=== PATIENT | female | born 1995 | race Caucasian/White ===

== ENCOUNTER 2017-02-07 13:16 | Emergency (ER) | payer MEDICAID ==
[2017-02-07 15:03] LABS: BASOPHILS 0.1 % (0-2); EOSINOPHILS 0.9 % (0-7); HEMATOCRIT 33.7 % (36.0-48.0); HEMOGLOBIN 11.2 g/dL (12-16); IMMATURE GRANULOCYTES 0.4 % (0-5); LYMPHOCYTES 21.5 % (15-50); MCH 29.9 pg (26.0-34.0); MCHC 33.2 g/dL (31.0-37.0); MCV 89.9 fL (80.0-100.0); MEAN PLATELET VOLUME 11.7 fL (7.4-10.4); MONOCYTES 6.2 % (2-11); NEUTROPHILS 70.9 % (40-80); PLATELET COUNT 171 10x3/uL (130-400); RBC 3.75 10x6/uL (4.00-5.40); RDW 13.4 % (11.5-14.5); WBC 11.1 10x3/uL (4.8-10.8)
[2017-02-07 15:11] LABS: APPEARANCE CLOUDY (CLEAR); BACTERIA MODERATE /hpf (NONE SEEN); BILIRUBIN NEGATIVE (NEGATIVE); COLOR YELLOW (YELLOW); GLUCOSE NEGATIVE (NEGATIVE); KETONE NEGATIVE (NEGATIVE); LEUKOCYTE ESTERASE TRACE (NEGATIVE); NITRITE NEGATIVE (NEGATIVE); PROTEIN NEGATIVE (NEGATIVE); RED CELLS - URINE OCC /hpf (0-5); UROBILINOGEN NORMAL (NORMAL); YEAST OCC /hpf (NONE SEEN)
[2017-02-07 15:15] LABS: CALC OSMOLALITY 271 mosm/kg (275-300); CALCIUM 8.8 mg/dL (8.5-10.1); CARBON DIOXIDE 27.2 mmol/L (21.0-32.0); CHLORIDE - SERUM 104 mmol/L (98-107); CREATININE - SERUM 0.5 mg/dL (0.6-1.3); GLUCOSE 102 mg/dL (74-106); POTASSIUM - SERUM 3.6 mmol/L (3.5-5.1); SODIUM 137 mmol/L (136-145); UREA NITROGEN 7 mg/dL (7-18); eGFR NON AFRICAN AMERICAN > 90 mL/min (90-120)
[2017-02-07 15:18] LABS: GRANULAR CAST 0-5 /lpf (NONE SEEN); MUCUS <1+ /lpf (NONE SEEN)
== END 2017-02-07 15:55 | disposition home or self-care (01) ==
LOC: D.ER 13:16
PROVIDERS: Nurse Practitioner Acute Care
DX: S16.1XXA Strain of muscle, fascia and tendon at neck level, initial encounter (principal); W19.XXXA Unspecified fall, initial encounter; Y93.89 Activity, other specified; Y92.89 Other specified places as the place of occurrence of the external cause; S40.011A Contusion of right shoulder, initial encounter; S70.01XA Contusion of right hip, initial encounter; A59.01 Trichomonal vulvovaginitis

== ENCOUNTER 2017-06-23 13:58 | Emergency (ER) | payer MEDICAID ==
[2017-06-23 15:19] LABS: APPEARANCE CLOUDY (CLEAR); BACTERIA MANY /hpf (NONE SEEN); BILIRUBIN NEGATIVE (NEGATIVE); COLOR YELLOW (YELLOW); GLUCOSE NEGATIVE (NEGATIVE); HYALINE CAST OCC /lpf (NONE SEEN); KETONE NEGATIVE (NEGATIVE); MUCUS <1+ /lpf (NONE SEEN); NITRITE NEGATIVE (NEGATIVE); PROTEIN NEGATIVE (NEGATIVE); RED CELLS - URINE 0-5 /hpf (0-5); SPECIFIC GRAVITY 1.015 (1.005-1.020); UROBILINOGEN NORMAL (NORMAL); YEAST >1+ WITH HYPHAE /hpf (NONE SEEN)
[2017-06-23 15:20] LABS: GRANULAR CAST RARE /lpf (NONE SEEN)
== END 2017-06-23 16:43 | disposition home or self-care (01) ==
LOC: D.ER 13:58
PROVIDERS: Family Medicine
DX: M62.838 Other muscle spasm (principal); N39.0 Urinary tract infection, site not specified; W10.9XXA Fall (on) (from) unspecified stairs and steps, initial encounter; Y93.89 Activity, other specified; Y92.019 Unspecified place in single-family (private) house as the place of occurrence of the external cause; F90.9 Attention-deficit hyperactivity disorder, unspecified type

== ENCOUNTER 2017-11-30 14:31 | Emergency (ER) | payer SELFPAY ==
[~2017-11-30] VITALS: Ht 154.9 cm; Wt 86.4 kg
[2017-11-30 14:48] VITALS: Ht 154.9 cm; Wt 86.4 kg
[2017-11-30] MEDS ORDERED: ACETAMINOPHEN500 M1 PO (16:55)
[2017-11-30] MEDS ORDERED: CYCLOBENZAPRINE10 MG PO (16:55)
[2017-11-30] MEDS ORDERED: MEDROL DOSE PACK4 MG PO (16:55)
[2017-11-30 17:02] VITALS: BP 111/70
== END 2017-11-30 17:03 | disposition home or self-care (01) ==
LOC: D.ER 14:31
DX: M54.6 Pain in thoracic spine (principal); M54.5 Low back pain; F17.200 Nicotine dependence, unspecified, uncomplicated

== ENCOUNTER 2017-12-30 13:32 | Emergency (ER) | payer SELFPAY ==
[~2017-12-30] VITALS: Ht 154.9 cm; Wt 86.4 kg
[~2017-12-30 13:32] MED LIST: ACETAMINOPHEN500 M1 PO; CYCLOBENZAPRINE10 MG PO; MEDROL DOSE PACK4 MG PO
[2017-12-30 13:58] VITALS: BP 113/76; Ht 154.9 cm; Wt 86.4 kg
[2017-12-30 14:45] LABS: BASOPHILS 0.2 % (0-2); HEMATOCRIT 38.9 % (36.0-48.0); HEMOGLOBIN 12.8 g/dL (12-16); IMMATURE GRANULOCYTES 0.1 % (0-5); LYMPHOCYTES 25.4 % (15-50); MCH 28.1 pg (26.0-34.0); MCHC 32.9 g/dL (31.0-37.0); MCV 85.5 fL (80.0-100.0); MEAN PLATELET VOLUME 11.2 fL (7.4-10.4); NEUTROPHILS 65.3 % (40-80); RBC 4.55 10x6/uL (4.00-5.40); RDW 14.3 % (11.5-14.5); WBC 9.4 10x3/uL (4.8-10.8)
[2017-12-30 14:53] LABS: PLATELET COUNT 232 10x3/uL (130-400)
[2017-12-30 15:10] LABS: ALBUMIN 3.5 g/dL (3.4-5.0); ALKALINE PHOSPHATASE 49 U/L (46-116); ALT (SGPT) 31 U/L (10-68); BILIRUBIN - TOTAL 0.11 mg/dL (0.2-1.3); CALC OSMOLALITY 276 mosm/kg (275-300); CALCIUM 9.4 mg/dL (8.5-10.1); CARBON DIOXIDE 28.8 mmol/L (21.0-32.0); CHLORIDE - SERUM 105 mmol/L (98-107); CREATININE - SERUM 0.8 mg/dL (0.6-1.3); GLUCOSE 100 mg/dL (74-106); POTASSIUM - SERUM 4.1 mmol/L (3.5-5.1); PROTEIN - SERUM 6.9 g/dL (6.4-8.2); SODIUM 139 mmol/L (136-145); UREA NITROGEN 10 mg/dL (7-18); eGFR NON AFRICAN AMERICAN > 90 mL/min (90-120)
[2017-12-30 15:19] LABS: HCG - QUANTITATIVE (MATERNAL) 0 mIU/mL
[2017-12-30] MEDS ORDERED: KEFLEX500 MG PO (16:59)
== END 2017-12-30 17:06 | disposition home or self-care (01) ==
LOC: D.ER 13:32
PROVIDERS: Family Medicine
DX: N93.9 Abnormal uterine and vaginal bleeding, unspecified (principal); T14.8XXA Other injury of unspecified body region, initial encounter; W57.XXXA Bitten or stung by nonvenomous insect and other nonvenomous arthropods, initial encounter; Y93.89 Activity, other specified; Y92.019 Unspecified place in single-family (private) house as the place of occurrence of the external cause

== ENCOUNTER 2018-11-19 10:24 | Emergency (ER) | payer SELFPAY ==
[~2018-11-19] VITALS: Ht 154.9 cm; Wt 69.1 kg
[~2018-11-19 10:24] MED LIST changes: +KEFLEX500 MG PO
[2018-11-19 10:30] VITALS: Ht 154.9 cm; Wt 69.1 kg
[2018-11-19] MEDS ORDERED: CLEOCIN HCL300 MG PO (11:04)
[2018-11-19] MEDS ORDERED: TALWIN NX1 TAB PO (11:04)
[2018-11-19 11:55] VITALS: BP 114/78
== END 2018-11-19 11:57 | disposition home or self-care (01) ==
LOC: D.ER 10:24
DX: K04.7 Periapical abscess without sinus (principal); L03.211 Cellulitis of face

== ENCOUNTER 2019-02-03 13:13 | Emergency (ER) | payer MEDICAID ==
[~2019-02-03] VITALS: Ht 154.9 cm; Wt 65.9 kg
[~2019-02-03 13:13] MED LIST changes: +CLEOCIN HCL300 MG PO; +TALWIN NX1 TAB PO
[2019-02-03 13:40] VITALS: BP 159/119; Ht 154.9 cm; Wt 65.9 kg
== END 2019-02-03 17:20 | disposition home or self-care (01) ==
LOC: D.ER 13:13
DX: T76.21XA Adult sexual abuse, suspected, initial encounter (principal); F17.210 Nicotine dependence, cigarettes, uncomplicated

== ENCOUNTER 2019-04-18 13:29 | Emergency (ER) | payer MEDICAID ==
[~2019-04-18] VITALS: Ht 154.9 cm; Wt 72.7 kg
[2019-04-18 13:37] VITALS: Ht 154.9 cm; Wt 72.7 kg
[2019-04-18 14:13] LABS: HCG SERUM NEGATIVE (NEGATIVE)
[2019-04-18] MEDS ORDERED: ULTRAM50 MG PO (16:18)
[2019-04-18 16:38] VITALS: BP 126/78
== END 2019-04-18 16:38 | disposition home or self-care (01) ==
LOC: D.ER 13:29
PROVIDERS: Family Medicine
DX: R51 Headache (principal); M25.571 Pain in right ankle and joints of right foot; W10.9XXA Fall (on) (from) unspecified stairs and steps, initial encounter; F17.210 Nicotine dependence, cigarettes, uncomplicated

== ENCOUNTER 2019-06-07 11:48 | Emergency (ER) | payer MEDICAID ==
[~2019-06-07] VITALS: Ht 154.9 cm; Wt 71.1 kg
[~2019-06-07 11:48] MED LIST changes: +ULTRAM50 MG PO
[2019-06-07 11:59] VITALS: Ht 154.9 cm; Wt 71.1 kg
[2019-06-07 12:42] LABS: BASOPHILS 0.2 % (0-2); EOSINOPHILS 1.3 % (0-7); HEMOGLOBIN 14.9 g/dL (12-16); IMMATURE GRANULOCYTES 0.2 % (0-5); LYMPHOCYTES 38.9 % (15-50); MCH 29.7 pg (26.0-34.0); MCHC 33.1 g/dL (31.0-37.0); MCV 89.8 fL (80.0-100.0); MEAN PLATELET VOLUME 10.8 fL (7.4-10.4); MONOCYTES 8.4 % (2-11); PLATELET COUNT 256 10x3/uL (130-400); RBC 5.01 10x6/uL (4.00-5.40); RDW 13.6 % (11.5-14.5); WBC 8.7 10x3/uL (4.8-10.8)
[2019-06-07 12:44] LABS: CALC OSMOLALITY 282 mosm/kg (275-300); CALCIUM 9.3 mg/dL (8.5-10.1); CARBON DIOXIDE 28.1 mmol/L (21.0-32.0); CHLORIDE - SERUM 105 mmol/L (98-107); CREATININE - SERUM 0.7 mg/dL (0.6-1.3); GLUCOSE 80 mg/dL (74-106); POTASSIUM - SERUM 3.8 mmol/L (3.5-5.1); SODIUM 142 mmol/L (136-145); UREA NITROGEN 16 mg/dL (7-18); eGFR NON AFRICAN AMERICAN > 90 mL/min (90-120)
[2019-06-07 12:50] LABS: ALBUMIN 3.7 g/dL (3.4-5.0); ALKALINE PHOSPHATASE 56 U/L (46-116); ALT (SGPT) 37 U/L (10-68); AMYLASE - SERUM 55 U/L (25-115); BILIRUBIN - TOTAL 0.23 mg/dL (0.2-1.3); LIPASE 80 U/L (73-393); PROTEIN - SERUM 7.6 g/dL (6.4-8.2)
[2019-06-07 12:52] LABS: HCG URINE NEGATIVE (NEGATIVE)
[2019-06-07 12:53] LABS: APPEARANCE CLOUDY (CLEAR); BILIRUBIN NEGATIVE (NEGATIVE); COLOR YELLOW (YELLOW); GLUCOSE NEGATIVE (NEGATIVE); KETONE NEGATIVE (NEGATIVE); NITRITE NEGATIVE (NEGATIVE); PROTEIN TRACE mg/dL (NEGATIVE); UROBILINOGEN NORMAL (NORMAL)
[2019-06-07 12:57] LABS: RED CELLS - URINE NONE SEEN /hpf (0-5); WHITE CELLS - URINE 0-5 /hpf (NEGATIVE)
[2019-06-07 12:58] LABS: BACTERIA FEW /hpf (NEGATIVE)
[2019-06-07] MEDS ORDERED: MIRALAX17 GM PO (15:15)
[2019-06-07 16:08] VITALS: BP 126/70
== END 2019-06-07 16:09 | disposition home or self-care (01) ==
LOC: D.ER 11:48
PROVIDERS: Family Medicine
DX: K59.00 Constipation, unspecified (principal); R10.9 Unspecified abdominal pain; R42 Dizziness and giddiness

== ENCOUNTER 2019-06-07 17:40 | Emergency (ER) | payer MEDICAID ==
[~2019-06-07 17:40] MED LIST changes: +MIRALAX17 GM PO
[2019-06-07 17:50] VITALS: BP 130/84; Ht 154.9 cm
== END 2019-06-07 17:55 | disposition home or self-care (01) ==
LOC: D.ER 17:40
DX: K59.00 Constipation, unspecified (principal); Z76.5 Malingerer [conscious simulation]; M25.562 Pain in left knee; M25.561 Pain in right knee

== ENCOUNTER 2020-02-08 09:20 | Emergency (ER) | payer OTHER ==
[~2020-02-08] VITALS: Ht 154.9 cm; Wt 75.2 kg
[~2020-02-08 09:20] MED LIST changes: +MUCINEX DM ER1 EAC1 PO; +TAMIFLU75 MG PO; +TYLENOL W/CODEI1 TAB PO; +ZOFRAN ODT4 MG/UDTAB PO
[2020-02-08 09:26] VITALS: BP 126/92; Ht 154.9 cm; Wt 75.2 kg
[2020-02-08 10:29] LABS: BASOPHILS 0.2 % (0-2); EOSINOPHILS 0.7 % (0-7); HEMATOCRIT 42.6 % (36.0-48.0); HEMOGLOBIN 13.8 g/dL (12-16); IMMATURE GRANULOCYTES 0.1 % (0-5); LYMPHOCYTES 20.9 % (15-50); MCH 30.1 pg (26.0-34.0); MCHC 32.4 g/dL (31.0-37.0); MCV 92.8 fL (80.0-100.0); MEAN PLATELET VOLUME 10.7 fL (7.4-10.4); MONOCYTES 8.6 % (2-11); NEUTROPHILS 69.5 % (40-80); PLATELET COUNT 291 10x3/uL (130-400); RBC 4.59 10x6/uL (4.00-5.40); RDW 12.4 % (11.5-14.5)
[2020-02-08 10:43] LABS: HCG SERUM NEGATIVE (NEGATIVE)
[2020-02-08 10:44] LABS: CALC OSMOLALITY 274 mosm/kg (275-300); CALCIUM 9.7 mg/dL (8.5-10.1); CARBON DIOXIDE 30.7 mmol/L (21.0-32.0); CHLORIDE - SERUM 100 mmol/L (98-107); CREATININE - SERUM 0.8 mg/dL (0.6-1.3); GLUCOSE 82 mg/dL (74-106); POTASSIUM - SERUM 4.2 mmol/L (3.5-5.1); SODIUM 138 mmol/L (136-145); UREA NITROGEN 12 mg/dL (7-18); eGFR NON AFRICAN AMERICAN > 90 mL/min (90-120)
[2020-02-08 10:50] LABS: ALBUMIN 3.8 g/dL (3.4-5.0); ALKALINE PHOSPHATASE 64 U/L (30-120); ALT (SGPT) 24 U/L (10-68); BILIRUBIN - TOTAL 0.27 mg/dL (0.2-1.3); PROTEIN - SERUM 8.2 g/dL (6.4-8.2)
[2020-02-08] MEDS ORDERED: TYLENOL W/CODEI1 TAB PO (11:35)
[2020-02-08] MEDS ORDERED: OMNICEF300 MG PO (11:35)
== END 2020-02-08 12:06 | disposition home or self-care (01) ==
LOC: D.ER 09:20
PROVIDERS: Family Medicine
DX: K02.9 Dental caries, unspecified (principal); L03.211 Cellulitis of face; D72.829 Elevated white blood cell count, unspecified; K00.7 Teething syndrome; F17.210 Nicotine dependence, cigarettes, uncomplicated